=== PATIENT | female | born 1960 | race Caucasian/White ===

== ENCOUNTER 2018-12-13 15:04 | Inpatient (IN) | payer MEDICAID ==
[~2018-12-13] VITALS: Ht 170.2 cm; Wt 53.1 kg
--- NOTE | 2018-12-13 15:10 | NUR ---
TICO 58 YEAR ROLD FEMALE Sent by urgent care for Low SpO2 80% on room air Cough, congestion, fevers, and chills with progressive sob x 1 week. ALERT AND ORIENTED X3, BREATHING EVEN ON O2 VIA NC 5LPM SATTING 90%. SKIN INTACT. WAITING TO BE SEEN BY MD.
[2018-12-13] MEDS ORDERED: ALBUTEROL FS 2.5 MG/3 ML VIAL.NEB ONE (15:17)
[2018-12-13] MEDS ORDERED: IPRATROPIUM NEB FS 0.5 MG/2.5 ML AMPUL.NEB ONE (15:17)
[2018-12-13] MEDS ORDERED: ALBUTEROL FS 2.5 MG/3 ML VIAL.NEB NEB ONE (15:30)
[2018-12-13] MEDS ORDERED: IV NS 0.9% 1,000 ML BAG IV ONE (15:30)
[2018-12-13] MEDS ORDERED: IPRATROPIUM NEB FS 0.5 MG/2.5 ML AMPUL.NEB NEB ONE (15:30)
--- NOTE | 2018-12-13 15:34 | NUR ---
PATIENT IS SATURATING AT 94% WITH BREATHING TX
--- NOTE | 2018-12-13 15:34 | NUR ---
RT AT BEDSIDE TO GIVEN PATIENT BREATHING TX ORDERED
[2018-12-13 15:36] LABS: BASOPHILS % (AUTO) 0.4 % (0.0-2.0); EOSINOPHILS % (AUTO) 0.2 % (0.0-6.0); HEMATOCRIT 36 % (33-45); HEMOGLOBIN 12.1 g/dL (11.5-14.8); LYMPHOCYTES # (AUTO) 0.8 /CMM (0.8-4.8); LYMPHOCYTES % (AUTO) 7.9 % (20.0-44.0); MEAN CORPUSCULAR HGB CONC 33 g/dl (31.0-36.0); MEAN CORPUSCULAR VOLUME 90 fL (82-100); MONOCYTES # (AUTO) 0.7 /CMM (0.1-1.30); MONOCYTES % (AUTO) 7.1 % (2.0-12.0); NEUTROPHILS # (AUTO) 8.2 /CMM (1.8-8.9); NEUTROPHILS % (AUTO) 84.4 % (43.0-81.0); PLATELET COUNT (AUTO) 230 /CMM (150-450); RED BLOOD CELL COUNT(AUTO) 4.02 MIL/uL (4.0-5.2); WHITE BLOOD COUNT (AUTO) 9.8 K/uL (4.3-11.0)
[2018-12-13 15:38] LABS: CALCIUM, SERUM 10.6 mg/dL (8.5-10.1); CARBON DIOXIDE 28 mmol/L (21-32); CHLORIDE 103 mmol/L (98-107); CREATININE 1.5 mg/dL (0.6-1.3); GLUCOSE 119 mg/dL (74-106); POTASSIUM 4.2 mmol/L (3.5-5.1); SODIUM SERUM 137 mmol/L (136-145); UREA NITROGEN, BLOOD 37 mg/dL (7-18)
[2018-12-13 15:40] LABS: ABG BASE EXCESS -0.7 mmol/L; ABG PCO2 36.7 mmHg (35.0-45.0); ABG PH 7.422 (7.350-7.450); AaDO2 177.8 mmHg; COHb 1.3 % (0.5-1.5); MetHb 0.6 % (0.0-1.5); O2Hb 87.3 % (94.0-97.0); SITE, ABG Right Radial; VENT MODE, BG NC 39%
[2018-12-13 15:52] LABS: ALANINE AMINOTRANSFERASE 73 U/L (12-78); ALBUMIN 2.6 g/dL (3.4-5.0); ALKALINE PHOSPHATASE 173 U/L (46-116); ASPARTATE AMINOTRANSFERASE 30 U/L (15-37); B-TYPE NATRIURETIC PEPTIDE 5412 PG/ML (0-125); BILIRUBIN,DIRECT 0.1 mg/dL (0.0-0.2); BILIRUBIN,TOTAL 0.5 mg/dL (0.2-1.0); TOTAL PROTEIN, SERUM 6.3 g/dL (6.4-8.2)
[2018-12-13] MEDS ORDERED: AZITHROMYCIN 500 MG in IV D5W 250 ML IV ONE (16:00)
[2018-12-13] MEDS ORDERED: CEFTRIAXONE 1 G VIAL ONE (16:00)
[2018-12-13] MEDS ORDERED: CEFTRIAXONE 1GM BAG (ER ONLY) 1 GM/50 ML PIGGYBACK IV ONE (16:00)
--- NOTE | 2018-12-13 16:08 | NUR ---
CALLED FOR BED TELE
--- NOTE | 2018-12-13 16:29 | NUR ---
GOT BED 313-2
--- NOTE | 2018-12-13 16:40 | NUR ---
REPORT GIVEN TO ARVIND TO CONTINUE CONTINUITY OF CARE
--- NOTE | 2018-12-13 17:00 | NUR ---
PLAQUE MAKER NOTES PATIENT ARRIVED ON UNIT ALERT, ORIENTED X4. ORIENTED TO UNIT, CALL LIGHT WITHIN REACH. PATIENT NOTED TO HAVE SOB WITH EXERTION. SKIN IS INTACT. DAUGHTER AT BEDSIDE. ON 5L VIA NASAL CANNULA. BED IN LOW LOCKED POSITION. CALL LIGHT WITHIN REACH. PATIENT WITH 2 PERIPHERAL IVS INTACT, PATENT. PATIENT PLACED ON TELE MONITORING. PATIENT SINUS TACHY. WILL CONTINUE TO MONITOR.
--- NOTE | 2018-12-13 17:06 | NUR ---
PATIENT TRANSPORTED TO BED 313-2
[2018-12-13] MEDS ORDERED: ZOLPIDEM TARTRATE 5 MG TABLET PO PRN (17:30)
[2018-12-13] MEDS ORDERED: ONDANSETRON HCL/PF 4 MG/2 ML VIAL IVP PRN (17:30)
[2018-12-13] MEDS ORDERED: MAG HYDROX/AL HYDROX/SIMETH 30 ML UDC PO PRN (17:30)
[2018-12-13] MEDS ORDERED: ACETAMINOPHEN 325 MG TABLET PO PRN (17:30)
[2018-12-13] MEDS ORDERED: HYDROCODONE/APAP 5/325MG 1 EACH TABLET PO PRN (17:30)
[2018-12-13] MEDS ORDERED: Z GUARD REMEDY 2 OZ OINT TP PRN (17:30)
[2018-12-13] MEDS ORDERED: MAGNESIUM HYDROXIDE 30 ML UDC PO PRN (17:30)
--- NOTE | 2018-12-13 18:30 | NUR ---
STRATEGY PLANNING CONSULTANT NOTES CALL RECEIVED FROM LAB REPORTING CRITICAL LACTIC ACID OF 3.2 AND PROCALCITONIN 56.1, DR NAZARIO MADE AWARE ORDERS TO REPEAT IN 3 HOURS, NOTED AND CARRIED OUT. PATIENT RESTING IN BED COMFORTABLE.
--- NOTE | 2018-12-13 19:34 | NUR ---
MS RN A/O X3, ST 98 HR IN TELE MONITOR, ON 5LPM NASAL CANNULA. DAUGHTER AT BEDSIDE. RESPIRATIONS EVEN AND UNLABORED. CALL LIGHT WITHIN REACH. WILL CONTINUE TO MONITOR ACCORDINGLY.
--- NOTE | 2018-12-13 19:37 | NUR ---
MS RN NOTES PATIENT IN BED RESTING NO SOB OR ACUTE DISTRESS NOTED. ALL DUE MEDICATIONS ADMINISTERED. ALL NEEDS MET. ENDORSED CARE TO PM SHIFT.
[2018-12-13 20:00] VITALS: BP 104/60
--- NOTE | 2018-12-13 20:55 | NUR ---
RN NOTES: PER DR NAZARIO TO REPEAT LACTIC ACID AND PROCALCITONIN IN 3HRS.
[2018-12-14] VITALS: BP 110/64
[2018-12-14 03:36] LABS: BASOPHILS # (AUTO) 0.1 /CMM (0.0-0.2); BASOPHILS % (AUTO) 0.9 % (0.0-2.0); HEMATOCRIT 32 % (33-45); HEMOGLOBIN 10.7 g/dL (11.5-14.8); LYMPHOCYTES % (AUTO) 9.9 % (20.0-44.0); MEAN CORPUSCULAR HGB CONC 34 g/dl (31.0-36.0); MEAN CORPUSCULAR VOLUME 89 fL (82-100); MONOCYTES # (AUTO) 0.8 /CMM (0.1-1.30); MONOCYTES % (AUTO) 8.5 % (2.0-12.0); NEUTROPHILS # (AUTO) 7.6 /CMM (1.8-8.9); NEUTROPHILS % (AUTO) 76.7 % (43.0-81.0); PLATELET COUNT (AUTO) 207 /CMM (150-450); RED BLOOD CELL COUNT(AUTO) 3.57 MIL/uL (4.0-5.2); WHITE BLOOD COUNT (AUTO) 9.9 K/uL (4.3-11.0)
[2018-12-14 03:47] LABS: CALCIUM, SERUM 10.3 mg/dL (8.5-10.1); CREATININE 1.3 mg/dL (0.6-1.3); MAGNESIUM 1.8 mg/dL (1.8-2.4); PHOSPHORUS 3.5 mg/dL (2.5-4.9); POTASSIUM 3.8 mmol/L (3.5-5.1)
[2018-12-14 04:00] VITALS: BP 111/67
[2018-12-14 04:56] LABS: THYROID STIMULATING HORMONE 2.63 uIU/mL (0.358-3.74)
--- NOTE | 2018-12-14 06:23 | NUR ---
[employer] ACTIVITIES CLERK ASLEEP AND EASILY AWAKEN, ON CARDIAC MONITORING ST 95 HR IN TELE MONITOR. NO SHORTNESS OF BREATH THROUGHOUT THE NIGHT. SLEPT WELL. NEEDS ATTENDED AND ANTICIPATED, KEPT CLEAN, DRY AND COMFORTABLE. AM CARE RENDERED. NO C/O OF PAIN. SAFETY MEASURES AT ALL TIMES. WILL CONT TO MTR
[2018-12-14 08:00] VITALS: BP 107/66
--- NOTE | 2018-12-14 08:00 | NUR ---
MS RN NOTES: RECEIVED PATIENT IN BED ALERT AND AWAKE. A/O X4. VERBALLY RESPONSIVE AND ABLE TO MAKE NEEDS KNOWN. ON STRICT I/O. BRP WITH ASSIST AND AMBULATORY WITH ASSIST. BED IS IN LOW, LOCKED POSITION, SKIN IS INTACT. IV ACCESS ON LEFT AC #20G, AND RIGHT FA #20G. IV LINE INTACT AND PATENT. NO COMPLAINS OF PAIN OR DISTRESS NOTED AT THIS TIME. PATIENT IS ON 6L VIA NASAL CANNULA. ON O2 SAT MONITORING. BASELINE RANGING ABOUT 88-90. ALL NURSING NEEDS MET AND PROVIDED AT THIS TIME. CALL LIGHT WITHIN REACH. WILL CONTINUE TO MONITOR.
[2018-12-14] MEDS ORDERED: FUROSEMIDE 40 MG/4 ML VIAL IV ONE (10:00)
[2018-12-14] MEDS: IV D5/0.45 NACL 1,000 ML IV PRN (11:11)
[2018-12-14] MEDS: ALBUTEROL HALF STRENGTH 1.25 MG/3 ML VIAL.NEB NEB SCH ×3 (11:27→19:12)
[2018-12-14] MEDS: IPRATROPIUM NEB FS 0.5 MG/2.5 ML AMPUL.NEB NEB SCH ×3 (11:27→19:12)
[2018-12-14] MEDS: AZITHROMYCIN 500 MG in IV D5W 250 ML IV SCH (15:35)
[2018-12-14 16:00] VITALS: BP 100/60
[2018-12-14] MEDS: CEFTRIAXONE 1 G in IV D5W 50 ML IV SCH (17:04)
--- NOTE | 2018-12-14 18:14 | NUR ---
PT RESTING IN BED EATING DINNER WITH HER DAUGHTER AT THE BEDSIDE .O2 SAT 93% WITH O2 AT 6L/MIN VIA NC WHILE EATING DINNER.DENIES ANY DISCOMFORT/DISTRESS.WILL MONITOR.CALL LIGHT PLACED WITHIN REACH.
--- NOTE | 2018-12-14 18:30 | NUR ---
PT WENT TO VOID IN THE COMMODE WITH ASSISTANCE WITH O2 AT 6L/MIN VIA NC.PT GOT TIRED EASILY ASSISTING HER BACK TO BED TO LAY DOWN .PLACED ON O2 MASK AT 8L/MIN WITH O2 SAT 97% CALL LIGHT PLACED WITHIN REACH.
[2018-12-14 20:00] VITALS: BP 106/60
[2018-12-15] MEDS: ALBUTEROL HALF STRENGTH 1.25 MG/3 ML VIAL.NEB NEB SCH ×4 (01:24→20:11)
[2018-12-15] MEDS: IPRATROPIUM NEB FS 0.5 MG/2.5 ML AMPUL.NEB NEB SCH ×4 (01:24→20:11)
[2018-12-15] MEDS: IV D5/0.45 NACL 1,000 ML IV PRN ×2 (02:15→20:53)
--- NOTE | 2018-12-15 06:30 | NUR ---
MS RN PM CLOSING NOTES: PATIENT AWAKE IN IN BED ALERT AND AWAKE. A/O X4. VERBALLY RESPONSIVE AND ABLE TO MAKE NEEDS KNOWN. PATIENT IS ON 6L VIA FACEMASK SAT AT 94%. ON STRICT I/O. BED IS IN LOW, LOCKED POSITION, SKIN IS INTACT. IV ACCESS ON LEFT AC #20G, AND RIGHT FA #20G. IV LINE INTACT AND PATENT. NO COMPLAINS OF PAIN OR DISTRESS NOTED AT THIS TIME. ON CONT O2 SAT MONITORING. BED DOWN AND LOCKD. CALL LIGHT WITHIN REACH. WILL CONTINUE TO MONITOR.
[2018-12-15 06:35] LABS: BASOPHILS % (AUTO) 0.6 % (0.0-2.0); EOSINOPHILS % (AUTO) 4.4 % (0.0-6.0); HEMATOCRIT 35 % (33-45); HEMOGLOBIN 11.7 g/dL (11.5-14.8); LYMPHOCYTES # (AUTO) 1.2 /CMM (0.8-4.8); LYMPHOCYTES % (AUTO) 15.2 % (20.0-44.0); MEAN CORPUSCULAR HGB CONC 34 g/dl (31.0-36.0); MEAN CORPUSCULAR VOLUME 89 fL (82-100); MONOCYTES # (AUTO) 0.6 /CMM (0.1-1.30); MONOCYTES % (AUTO) 7.9 % (2.0-12.0); NEUTROPHILS # (AUTO) 5.9 /CMM (1.8-8.9); NEUTROPHILS % (AUTO) 71.9 % (43.0-81.0); PLATELET COUNT (AUTO) 217 /CMM (150-450); RED BLOOD CELL COUNT(AUTO) 3.88 MIL/uL (4.0-5.2); WHITE BLOOD COUNT (AUTO) 8.2 K/uL (4.3-11.0)
[2018-12-15 06:51] LABS: CREATININE 1.3 mg/dL (0.6-1.3); PHOSPHORUS 3.7 mg/dL (2.5-4.9); POTASSIUM 3.3 mmol/L (3.5-5.1)
[2018-12-15 08:00] VITALS: BP 116/69
--- NOTE | 2018-12-15 08:00 | NUR ---
RN NOTES RECEIVED PATIENT IN THE BED 58 Y/OLD FEMALE ON O2 6L MASK 94 %. PATIENT A/O X3 NO ACUTE RESPIRATORY DISTRESS, HOB ELEVATED. PATIENT REFUSED PAIN, WEAK, V/S STABLE. PATIENT USING BEDSIDE COMMODE. PATIENT GOING TO GET BREATHING TREATMENT AT THIS TIME BY RT. CALL LIGHT WITHIN TO REACH, SAFETY PRECAUTION MAINTAINED ALL THE TIME.
[2018-12-15] MEDS: LACTOBACILLUS RHAMNOSUS GG 1 EACH CAP.SPRINK PO SCH ×2 (09:54→17:10)
[2018-12-15] MEDS ORDERED: POTASSIUM CHLORIDE 20 MEQ TAB.PRT.SR PO SCH (10:00)
--- NOTE | 2018-12-15 10:00 | NUR ---
RN NOTES PATIENT ON O2-4LNC FEELING MUCH BETTER, AMBULATED TO THE BATHROOM BY ASSIST. SEEN BY HOSPITALIST Dr NAZARIO, ADMINISTERED SCHEDULED MEDICATION. DAUGHTER NEXT TO THE BED, TOLERATED FOOD WELL. CALL LIGHT WITHIN TO REACH. INFUSING D5 1/2 NS AT 60 ML/HR ON LEFT AC INTACT. SAFETY PRECAUTION MAINTAINED ALL THE TIME
[2018-12-15 10:45] LABS: APPEARANCE,URINE CLEAR (CLEAR); BILIRUBIN,URINE NEGATIVE (NEGATIVE); BLOOD, URINE NEGATIVE Ery/uL (NEGATIVE); COLOR,URINE YELLOW (YELLOW); KETONES,URINE NEGATIVE (NEGATIVE); LEUKOCYTE ESTERASE ,URINE NEGATIVE (NEGATIVE); NITRITE, URINE NEGATIVE (NEGATIVE); PROTEIN,URINE NEGATIVE (NEGATIVE); UGLUCOSE NEGATIVE (NEGATIVE); UROBILINOGEN,URINE 0.2 EU/dL (0.2)
--- NOTE | 2018-12-15 15:00 | NUR ---
RN NOTES ASSIST PATIENT TO THE BATHROOM WITH ASSIST, ON O2-4LNC, PATIENT REFUSED PAIN AT THIS TIME, NO ACUTE RESPIRATORY DISTRESS.
[2018-12-15 16:00] VITALS: BP 127/84
[2018-12-15] MEDS: AZITHROMYCIN 500 MG in IV D5W 250 ML IV SCH (16:10)
[2018-12-15] MEDS: CEFTRIAXONE 1 G in IV D5W 50 ML IV SCH (17:10)
--- NOTE | 2018-12-15 18:30 | NUR ---
RN NOTES INFUSING ROCEPHIN 100 ML/HR, V/S STABLE, REFUSED PAIN, ON O2-4L NC, CALL LIGHT WITHIN TO REACH. DAUGHTER NEXT TO THE BED, PATIENT TOLERATED DINNER FOOD 100%. ENDORSED ONCOMING NURSE FOLLOW PLAN OF CARE.
--- NOTE | 2018-12-15 19:20 | NUR ---
RN PM OPENING NOTES BEDSIDE REPORT RECIEVED FROM CRYSTAL FUNES. INFUSING D5 HALF NS AT 60 ML/HR, PATIENT IN NO APPARENT DISTRESS, REFUSED PAIN, ON 4L NC, SAT AT 93-94% DENIES SOB. CALL LIGHT WITHIN TO REACH, VERBALIZED UNDERSTANDING TO CALL FOR ASSISTANCE NEEDED. . DAUGHTER NEXT TO THE BED POC REVIEWED QUESTIONS CONCERNS ADDRESSED, WILL CONT TO MONITOR. BED DOWN LOCKED. SAFETY MEASURES IN PLACE BED ALARM ACTIVE.
[2018-12-15 20:00] VITALS: BP 108/54
[2018-12-16] MEDS: ALBUTEROL HALF STRENGTH 1.25 MG/3 ML VIAL.NEB NEB SCH ×4 (01:27→19:54)
[2018-12-16] MEDS: IPRATROPIUM NEB FS 0.5 MG/2.5 ML AMPUL.NEB NEB SCH ×4 (01:27→19:55)
[2018-12-16 06:21] LABS: BASOPHILS % (AUTO) 0.4 % (0.0-2.0); EOSINOPHILS % (AUTO) 4.7 % (0.0-6.0); HEMATOCRIT 31 % (33-45); HEMOGLOBIN 10.7 g/dL (11.5-14.8); LYMPHOCYTES # (AUTO) 1.2 /CMM (0.8-4.8); LYMPHOCYTES % (AUTO) 16.5 % (20.0-44.0); MEAN CORPUSCULAR HGB CONC 34 g/dl (31.0-36.0); MEAN CORPUSCULAR VOLUME 89 fL (82-100); MONOCYTES # (AUTO) 0.7 /CMM (0.1-1.30); MONOCYTES % (AUTO) 9.3 % (2.0-12.0); NEUTROPHILS % (AUTO) 69.1 % (43.0-81.0); PLATELET COUNT (AUTO) 199 /CMM (150-450); RED BLOOD CELL COUNT(AUTO) 3.49 MIL/uL (4.0-5.2); WHITE BLOOD COUNT (AUTO) 7.3 K/uL (4.3-11.0)
--- NOTE | 2018-12-16 06:33 | NUR ---
RN PM CLOSING NOTES PATIENT IN NO APPRENT DISTRESS SATURATING 4LNC AT 95 % PATIENT TITRATED DOWN TO 2LNC SATURATING 93%. INFUSING D5 HALF NS AT 60 ML/HR, PATIENT IN NO APPARENT DISTRESS, DENIES SOB. CALL LIGHT WITHIN TO REACH, VERBALIZED UNDERSTANDING TO CALL FOR ASSISTANCE NEEDED. WILL CONT TO MONITOR. BED DOWN LOCKED. SAFETY MEASURES IN PLACE BED ALARM ACTIVE.
[2018-12-16 06:39] LABS: CALCIUM, SERUM 9.9 mg/dL (8.5-10.1); CREATININE 1.1 mg/dL (0.6-1.3); PHOSPHORUS 3.5 mg/dL (2.5-4.9); POTASSIUM 3.7 mmol/L (3.5-5.1)
[2018-12-16 08:00] VITALS: BP 121/90
--- NOTE | 2018-12-16 08:00 | NUR ---
RN Notes Received patient in the bed on o2 -2l NC, patient a/o x3, patient was complaining of coughing,and dizziness, no pain at this time. Administered scheduled medication, v/s stable, infusing D51/2 NS at 60 ml/hr on right FA intact. Assist patient bathroom. patient tolerated breakfast 75 %, no aspiration precaution. call light within to reach. safety precaution maintained all the time.
[2018-12-16] MEDS: LACTOBACILLUS RHAMNOSUS GG 1 EACH CAP.SPRINK PO SCH ×2 (09:29→16:34)
--- NOTE | 2018-12-16 11:00 | NUR ---
rn notes Seen patient by coremaker bench Dr Lockhart new order RA oximetry rest and walking and post front of chart.
--- NOTE | 2018-12-16 11:13 | NUR ---
rn notes patient walked with PT oxygen saturation draped to 87/88 room air, now patient back o2 -2l NC again shows 91/92 % at this time. Get new order per Dr Alvarez intensive spirometer for lung exercising.
--- NOTE | 2018-12-16 11:30 | NUR ---
rn notes educated patient incentive spirometer use.
[2018-12-16 16:00] VITALS: BP 117/72
[2018-12-16] MEDS: CEFTRIAXONE 1 G in IV D5W 50 ML IV SCH (16:34)
[2018-12-16] MEDS: AZITHROMYCIN 250 MG TABLET PO SCH (16:41)
--- NOTE | 2018-12-16 18:30 | NUR ---
RN NOTES PATIENT STABLE O2- 92 ROOM AIR, PATIENT AMBULATORY, ADMINISTERED SCHEDULED MEDICATION. V/S STABLE. NO ACUTE RESPIRATORY DISTRESS. REFUSED PAIN. CALL LIGHT WITHIN TO REACH. FAMILY NEXT TO THE BED. ENDORSED ONCOMING NURSE FOLLOW PLAN OF CARE.
--- NOTE | 2018-12-16 19:30 | NUR ---
MS RN OPENING NOTES RECEIVED PATIENT FROM MORNING SHIFT, ALERT AND ORIENTED X 4. VERBALLY RESPONSIVE AND ABLE TO FOLLOW DIRECTIONS. BREATHING REGULAR AND UNLABORED ON ROOM AIR, LATEST SPO2 92%. RIGHT FOREARM G20 IV LINE INTACT AND PATENT, FLUSHING WELL WITH NO BLEEDING OR S/S OF INFECTION/INFILTRATION OBSERVED. NO COMPLAINTS OF PAIN/DISCOMFORT REPORTED OF THE TIME. BODY ASSESSMENT DONE, SKIN REMAINED INTACT, CLEAN AND DRY. BED LOW AND LOCKED ON SEMI FOWLERS POSITION. CALL LIGHT IN REACH. WILL CONTINUE TO MONITOR.
[2018-12-16 20:00] VITALS: BP 128/74
--- NOTE | 2018-12-16 20:00 | NUR ---
MS RN NOTES DAUGHTER REQUESTED TO PUT OXYGEN ON PATIENT STARTED DESATURATING WHILE EATING. HOOKED BACK TO O2 AT 2L/min VIA NASAL CANNULA. NO OBSERVED S/S OF RESPIRATORY DISTRESS. WILL CONTINUE TO MONITOR.
[2018-12-17] MEDS: IPRATROPIUM NEB FS 0.5 MG/2.5 ML AMPUL.NEB NEB SCH ×4 (02:31→19:55)
[2018-12-17] MEDS: ALBUTEROL HALF STRENGTH 1.25 MG/3 ML VIAL.NEB NEB SCH ×4 (02:31→19:55)
--- NOTE | 2018-12-17 06:38 | NUR ---
MS RN CLOSING NOTES PATIENT IN BED, ALERT AND ORIENTED X 4. VERBALLY RESPONSIVE AND ABLE TO FOLLOW DIRECTIONS. BREATHING REGULAR AND UNLABORED, LATEST SPO2 94% ON ROOM AIR. RIGHT FOREARM G20 IV LINE INTACT AND PATENT, FLUSHING WELL WITH NO BLEEDING OR S/S OF INFECTION/INFILTRATION OBSERVED. NO COMPLAINTS OF PAIN/DISCOMFORT REPORTED WITHIN THE SHIFT. SPO2 OF 92% AFTER WALKING AND 87-89% WHILE SLEEPING. NO COMPLAINTS OF SOB OR DISTRESS OF THE TIME. BED LOW AND LOCKED ON SEMI FOWLERS POSITION. CALL LIGHT IN REACH. WILL ENDORSE TO MORNING SHIFT FOR REFUGIO.
[2018-12-17 07:02] LABS: BASOPHILS % (AUTO) 0.7 % (0.0-2.0); EOSINOPHILS % (AUTO) 5.2 % (0.0-6.0); HEMATOCRIT 32 % (33-45); LYMPHOCYTES # (AUTO) 1.6 /CMM (0.8-4.8); LYMPHOCYTES % (AUTO) 24.1 % (20.0-44.0); MEAN CORPUSCULAR HGB CONC 34 g/dl (31.0-36.0); MEAN CORPUSCULAR VOLUME 89 fL (82-100); MONOCYTES # (AUTO) 0.6 /CMM (0.1-1.30); MONOCYTES % (AUTO) 9.4 % (2.0-12.0); NEUTROPHILS % (AUTO) 60.6 % (43.0-81.0); PLATELET COUNT (AUTO) 224 /CMM (150-450); WHITE BLOOD COUNT (AUTO) 6.6 K/uL (4.3-11.0)
--- NOTE | 2018-12-17 07:15 | NUR ---
MS RN NOTES PATIENT IN BED ALERT ORIENTED X 4. NO ACUTE DISTRESS NOTED, BREATHING UNLABORED, NO SOB NOTED. IV ACCESS PATENT AND INTACT, NO REDNESS OR SWELLING NOTED.SAFETY MEASURES IN PLACE. CALL LIGHT WITHIN REACH. WILL CONTINUE TO MONITOR ACCORDINGLY.
[2018-12-17 07:33] LABS: CALCIUM, SERUM 10.1 mg/dL (8.5-10.1); CREATININE 1.1 mg/dL (0.6-1.3); PHOSPHORUS 4.4 mg/dL (2.5-4.9); POTASSIUM 4.5 mmol/L (3.5-5.1)
[2018-12-17 08:00] VITALS: BP 113/68
[2018-12-17] MEDS: LACTOBACILLUS RHAMNOSUS GG 1 EACH CAP.SPRINK PO SCH ×2 (08:10→16:13)
[2018-12-17 16:00] VITALS: BP 118/82
[2018-12-17] MEDS: CEFTRIAXONE 1 G in IV D5W 50 ML IV SCH (16:12)
[2018-12-17] MEDS: AZITHROMYCIN 250 MG TABLET PO SCH (16:13)
--- NOTE | 2018-12-17 18:54 | NUR ---
MS RN NOTES PATIENT IN BED ALERT ORIENTED X 4. NO ACUTE DISTRESS NOTED, BREATHING UNLABORED, NO SOB NOTED. IV ACCESS PATENT AND INTACT, NO REDNESS OR SWELLING NOTED.DUE MEDICATIONS GIVEN, NO ASE NOTED. NEEDS ATTENDED AND ANTICIPATED.SAFETY MEASURES IN PLACE. CALL LIGHT WITHIN REACH. PATIENT FOR DISCHARGE TONIGHT , WILL ENDORSE TO NIGHT NURSE FOR CONTINUITY OF CARE AND DISCHARGE.
--- NOTE | 2018-12-17 19:20 | NUR ---
MS RN OPENING NOTES RECEIVED PATIENT FROM MORNING SHIFT, ALERT AND ORIENTED X 4. VERBALLY RESPONSIVE AND ABLE TO FOLLOW DIRECTIONS. BREATHING REGULAR AND UNLABORED ON ROOM AIR, LATEST SPO2 94%. NO COMPLAINTS OF PAIN/DISCOMFORT REPORTED OF THE TIME. BODY ASSESSMENT DONE, SKIN REMAINED INTACT, CLEAN AND DRY. AWAITING FOR THE LAST BREATHING TREATMENT TO BE GIVEN AND READY FOR DISCHARGE. BED LOW AND LOCKED ON SEMI FOWLERS POSITION. CALL LIGHT IN REACH. WILL CONTINUE TO MONITOR.
--- NOTE | 2018-12-17 20:45 | NUR ---
MS RN NOTES DISCHARGE PATIENT VIA WHEELCHAIR ACCOMPANIED BY SURVEY STATISTICIAN AND FAMILIES. ALERT AND ORIENTED X 4. VERBALLY RESPONSIVE AND ABLE TO FOLLOW DIRECTIONS. AFEBRILE WITH NO S/S OF RESPIRATORY DISTRESS NOTED. IV ACCESS AND ID BAND REMOVED. DISCHARGE PACKET WITH INSTRUCTIONS AND TEACHINGS GIVEN BY MORNING SHIFT. CONFIRMED WITH PATIENT VERBALIZED UNDERSTANDING. REINSTRUCTED TO FOLLOW MEDICAL REGIMEN REGARDING HOME MEDS AND IN CASE OF EMERGENCY GO TO THE NEAREST ER OR CALL 911. ALSO INSTRUCTED TO FOLLOW UP WITH PCP WITHIN 1-2WEEKS. BELONGINGS RECHECKED AND ACCOUNTED FOR. CHECKLIST SIGNED. [id number] Temp 97.5 SPO2 93% ON ROOM AIR.
[2018-12-17 21:07] VITALS: BP 121/84
== END 2018-12-17 20:45 | disposition home or self-care (01) | DRG 720 ==
LOC: ER 15:05 → TELE 16:34 → MED 12-14 08:05
PROVIDERS: ADMIT Student in an Organized Health Care Education/Training Program
DX: A41.9 Sepsis, unspecified organism (principal); J96.01 Acute respiratory failure with hypoxia; N17.0 Acute kidney failure with tubular necrosis; I50.31 Acute diastolic (congestive) heart failure; J15.9 Unspecified bacterial pneumonia; J91.8 Pleural effusion in other conditions classified elsewhere; E44.0 Moderate protein-calorie malnutrition; E87.2 Acidosis; E86.0 Dehydration; E83.52 Hypercalcemia; Z87.891 Personal history of nicotine dependence; D64.9 Anemia, unspecified; E88.09 Other disorders of plasma-protein metabolism, not elsewhere classified; Z68.1 Body mass index [BMI] 19.9 or less, adult
CPT/HCPCS: 36415; 36600; 71045-TC; 80048-TC; 80061-TC; 80076-TC; 81000-TC; 82803-TC; 83605-TC; 83735-TC; 83880; 84100-TC; 84443-TC; 84484-TC; 85025-TC; 85730-TC; 87040-TC; 87081-TC; 87086-TC; 93307-TC; 94760-TC; 94762-TC; 94799-TC; 97116-TC; 97530-TC; A4216; G0378; J0456; J0696; J1940; J3490; J7030; J7050; J7060